=== PATIENT | male | born 1975 | race Caucasian/White ===

== ENCOUNTER 2024-08-31 18:24 | Emergency (ER) | payer BC, SELFPAY ==
[2024-08-31 18:30] VITALS: BP 143/90
--- NOTE | 2024-08-31 21:04 | ED.GENMED ---
History of Present Illness
General
Chief Complaint: Dental Problem
Source: patient
Exam Limitations: none
Time Seen by Provider: 08/31/24 18:53
Nursing documentation reviewed up to this point in time: agreed with
History of Present Illness
History of Present Illness:
49-year-old male presenting to the emergency department today with concerns of right upper tooth discomfort sensitive to cold for a few weeks but now worsening with ongoing discomfort. Unable to get in with a dentist over the next few weeks.
Denies additional concerns otherwise. No fevers no redness or warmth
Past History
Past History
ED Past Medical History: None
ED Past Surgical History: None
Social History
Tobacco: Non-smoker
Personal:
Living: with family
Employment: Employed
Review of Systems
Review of Systems
Allergies reviewed?: Yes
All Other Systems: ROS reviewed and negative except as documented in HPI and ROS
Phy Exam
Physical Exam
Physical Exam:
GENERAL: Alert , in no apparent distress
EYE: pupils equal and reactive
NECK: Supple, no significant adenopathy.
ENT: Right maxillary molar pain with filling in place small hole likely cavity. No redness or warmth no fluctuance or induration o/p clr, mmm.
CARDIAC: Regular rate and rhythm .
LUNGS: Clear breath sounds bilaterally, no acute respiratory distress, no wheezes/rales/rhonchi
ABDOMEN: Soft, without focal tenderness, no r/g, no cvat
NEUROLOGICAL: Alert and oriented, no focal neuro deficits
SKIN: Warm and dry, skin intact.
MUSCULOSKELETAL: No edema, well perfused.
PSYCH: Normal and appropriate interaction.
Course
Orders/Labs/Results
Orders:
Orders
08/31/24 20:55
Penicillin V Potassium [Pen Vk] 500 mg PO NOW STA
Vital Signs
Initial and Last Documented VS:
Initial Vital Signs
Temp Pulse Resp BP Pulse Ox
98.4 F 89 18 143/90 96
08/31/24 18:30 08/31/24 18:30 08/31/24 18:30 08/31/24 18:30 08/31/24 18:30
Last Documented Vital Signs
Temp Pulse Resp BP Pulse Ox
98.4 F 89 18 143/90 96
08/31/24 18:30 08/31/24 18:30 08/31/24 18:30 08/31/24 18:30 08/31/24 18:30
MDM/Problems Addressed
MDM/Problems Addressed:
49-year-old male presenting with concerns of dental discomfort. Patient appears have a small caries was started on antibiotics and given medication for discomfort and advised for close dental follow-up. Return precautions given.
*Critical Care Note
Total Time (30-74mins, 75-104mins- exclusive of procedures): Not Applicable
ED Attending Note
-
Portions of this chart may have been created with voice recognition software.� Occasional wrong word or��sound alike� substitutions may have occurred due to the inherent limitations of voice recognition software.
Discharge Plan
Departure
Patient Disposition: Home (Routine Discharge)
Date of Disposition: 08/31/24
Time of Disposition: 21:05
Patient with high blood pressure during this ER visit?: No
Condition: Good
Covid-19: Not Applicable
Discharge Problem:
Pain, dental
Instructions: Dental Pain (DC)
Prescriptions:
New
penicillin V potassium 500 mg tablet
500 mg PO TID 7 Days Qty: 21 0RF
oxycodone-acetaminophen [Endocet] 5-325 mg tablet
1 tab PO Q8H PRN (Reason: Pain) Qty: 5 0RF
No Action
prednisone 50 MG tablet
50 mg PO Daily Qty: 4 0RF
diazepam 5 MG tablet
5 mg PO TIDPRN PRN (Reason: Pain, spasm) Qty: 15 0RF
hydrocodone-acetaminophen [Denair] 1 EACH tablet
1 ea PO Q4HPRN PRN (Reason: severe pain) Qty: 10 0RF
Referrals:
UNKNOWN - PT DOES,NOT KNOW [Family Provider] -
Activity Restrictions/Additional Instructions:
You came to the emergency department today with concerns of dental discomfort. You were given antibiotics for possible pulpitis and also medication to help with discomfort. Return for any worsening, new or concerning symptoms. Please follow-up
with a dentist as soon as possible for definitive management.
Interventions
Interventions:
*Risk Screen - Suicide Last Done: 08/31/24 18:30
*General Assessment Last Done: 08/31/24 18:30
*Neglect/Abuse Screening Last Done: 08/31/24 18:44
*ED COVID-19 Vaccine History Last Done: 08/31/24 18:44
Discharge Date and Time
Print Language: MALAY
[2024-08-31] MEDS: PEN VK 500 MG PO (21:17)
== END 2024-08-31 21:24 | disposition home or self-care (01) ==
LOC: EMR 18:24
PROVIDERS: EMERGENCY PHYSICIAN Student in an Organized Health Care Education/Training Program
DX: K08.89 Other specified disorders of teeth and supporting structures (principal); K02.9 Dental caries, unspecified; Z88.2 Allergy status to sulfonamides; Z91.018 Allergy to other foods
CPT/HCPCS: 99283